=== PATIENT | female | born 1965 | race Two or more races ===

== ENCOUNTER 2021-05-22 14:45 | Outpatient (CLI) | payer OTHER ==
[~2021-05-22 14:45] MED LIST: PROTONIX40 MG PO; ZANTAC300 MG PO
== END 2021-05-22 14:55 | disposition home or self-care (01) ==
LOC: PPH VACUNA 14:45
PROVIDERS: ATTEND Emergency Medicine Pediatric Emergency Medicine
DX: Z23 Encounter for immunization (principal)